=== PATIENT | male | born 1965 | race Caucasian/White ===

== ENCOUNTER 2016-12-07 17:25 | Emergency (ER) | payer SELFPAY ==
[2016-12-07] MEDS ORDERED: Fluorescein Sodium TOPICAL* 1 MG TEST OPHTHALMIC ONE (18:29)
[2016-12-07] MEDS ORDERED: BSS OPTH.SOL* BTL OPHTHALMIC ONE (18:29)
[2016-12-07] MEDS ORDERED: Tetan/Diph/Pertus SYR(Tdap)* 0.5 ML SYR(BOOSTRIX) use SYR IM ONE (18:34)
[2016-12-07] MEDS: Polymyx/Trimethoprim OPTH* 10 ML BTL LEFT EYE ONE (19:14)
== END 2016-12-07 19:19 | disposition home or self-care (01) ==
LOC: UCCORT 17:25
DX: T15.92XA Foreign body on external eye, part unspecified, left eye, initial encounter (principal); I10 Essential (primary) hypertension; X58.XXXA Exposure to other specified factors, initial encounter
CPT/HCPCS: 90471; 90715; 99202; A9270-GY; G0463